=== PATIENT | female | born 1960 | race Caucasian/White ===

== ENCOUNTER → 2020-02-09 09:54 | Outpatient (REF) | payer MEDICARE, SELFPAY | LOC: ANHLAB 09:54 | PROVIDERS: PCP Family Medicine; Visit Provider Nurse Practitioner | DX: C44.321 Squamous cell carcinoma of skin of nose (principal) | CPT/HCPCS: 88305 ==

== ENCOUNTER → 2020-04-11 09:38 | Outpatient (REF) | payer MEDICARE, SELFPAY | LOC: ANHLAB 09:38 | PROVIDERS: PCP Family Medicine; Visit Provider Nurse Practitioner | DX: C44.321 Squamous cell carcinoma of skin of nose (principal) | CPT/HCPCS: 88305; 88331 ==

== ENCOUNTER 2021-07-10 01:01 | Day surgery (SDC) | payer MEDICARE, SELFPAY ==
[2021-06-28 14:11] VITALS: BMI 23.8
[2021-07-10 12:46] VITALS: BP 126/86; PULSE 81; RESP 16; TEMP 36.1; O2SAT 100
[2021-07-10] MEDS: LACTATED RINGERS 1,000 ML 150 ML IV CONT (12:50)
--- NOTE | 2021-07-10 12:55 | PM.HPGS ---
History of Present Illness History of Present Illness Consent: Risks, benefits, and alternatives have been discussed and questions answered. Patient agrees to proceed with procedure. Chief complaint: positive cologuard Narrative: Rosa Jin is a 61 year old female referred for colon cancer screening. She had performed a Cologuard test which was positive. Review of Systems Review of Systems: All systems reviewed & are unremarkable except as noted in HPI and below [facility] Past Medical History Medical History (Updated 07/10/21 @ 12:55 by Derek Cesar MD) BMI 25.0-25.9,adult Elevated blood pressure reading History of breast cancer Hypothyroidism Insomnia, unspecified Kienbock's disease of adults Lesion of skin of nose Neuropathy due to chemotherapeutic drug Other intervertebral disc degeneration, lumbosacral region Positive colorectal cancer screening using Cologuard test Surgical History Surgical History History of breast reconstruction History of hysterectomy History of intestinal surgery History of knee surgery Bilateral - knee replacements History of mastectomy History of neck surgery History of surgery on wrist bilateral wrist History of tubal ligation Family History Family History Mother Hypertension Family history of diabetes mellitus in first degree relative Family history of coronary artery disease Family history of heart disease in male family member before age 55 Father Family history of coronary artery disease Cerebrovascular accident Family history of heart disease in male family member before age 55 Sibling Family history of malignant neoplasm of ovary, Onset Age: 36 Family history of malignant neoplasm of breast in first degree relative, Onset Age: 55 Patient's sister is Other Family history of malignant neoplasm Family history of malignant neoplasm of male breast Family history of throat cancer Malignant neoplasm of prostate Social History Social History Smoking packs per day: 0.5 Smoking cigarettes per day: 10.0 Years smoked: 45 Smoking pack-years: 22.50 Smoking status: Current every day smoker Second hand tobacco smoke exposure: No Smoking end date: 03/11/90 Alcohol intake: current Living arrangements: with family Meds Home Medications and Allergies Home Medications Medication Instructions Recorded Confirmed Type gabapentin 300 mg capsule 600 mg PO TID #180 cap 02/28/21 07/10/21 Rx hydrocodone 7.5 mg-acetaminophen 1 tablet PO Q6H PRN #120 tablet 06/23/21 07/10/21 Rx 325 mg tablet meloxicam 15 mg PO DAILY 07/10/21 07/10/21 History Allergies Allergy/AdvReac Type Severity Reaction Status Date / Time No Known Allergies Allergy Verified 07/10/21 12:45 Vital Signs Vital Signs - 24 hr 07/10/21 12:46 Temperature 36.1 C L Pulse Rate 81 Respiratory Rate 16 Blood Pressure 126/86 Pulse Oximetry 100 Exam Const: General: alert Orientation/consciousness: patient oriented x3 Resp: Auscultation: clear to auscultation bilaterally Cardio: Rhythm: regular rhythm GI: GI Palp: Yes Soft to palpation and No Tenderness to palpation present (GI) Neuro: General: patient oriented x3 Assessment and Plan Assessment and plan (1) Colon cancer screening: Code(s): Z12.11 - Encounter for screening for malignant neoplasm of colon Status: Acute Assessment and Plan: Colonoscopy with possible biopsy or polypectomy or cautery or injection of substances.
--- NOTE | 2021-07-10 13:12 | WPDANESEPPF ---
Anes - Initial Pre Proc Eval Procedure: Operation Date: 07/10/21 13:30 Proposed Procedures p Colonoscopy - Derek Cesar MD Date/Time: 07/10/21 13:12 Surgeon: Derek Cesar MD Pre Op Diagnosis: positive cologuard Patient Data Age: 61 Gender: F Height: 1.68 m Weight: 69.3 kg Last Vital Signs Temp 97 F L 07/10/21 12:46 Pulse 81 07/10/21 12:46 Resp 16 07/10/21 12:46 BP 126/86 07/10/21 12:46 Pulse Ox 100 07/10/21 12:46 Allergies Allergy/AdvReac Type Severity Reaction Status Date / Time No Known Allergies Allergy Verified 07/10/21 12:45 Home Medications Medication Instructions Recorded Confirmed Type gabapentin 300 mg capsule 600 mg PO TID #180 cap 02/28/21 07/10/21 Rx hydrocodone 7.5 mg-acetaminophen 1 tablet PO Q6H PRN #120 tablet 06/23/21 07/10/21 Rx 325 mg tablet meloxicam 15 mg PO DAILY 07/10/21 07/10/21 History Patient hx anesthesia problems: none Family hx anesthesia problems: none Results Review: All pre-operative results and documents have been reviewed as part of the pre-operative evaluation. [facility] Past Medical History Medical History (Updated 07/10/21 @ 12:55 by Derek Cesar MD) BMI 25.0-25.9,adult Elevated blood pressure reading History of breast cancer Hypothyroidism Insomnia, unspecified Kienbock's disease of adults Lesion of skin of nose Neuropathy due to chemotherapeutic drug Other intervertebral disc degeneration, lumbosacral region Positive colorectal cancer screening using Cologuard test Surgical History Surgical History History of breast reconstruction History of hysterectomy History of intestinal surgery History of knee surgery Bilateral - knee replacements History of mastectomy History of neck surgery History of surgery on wrist bilateral wrist History of tubal ligation Family History Family History Mother Hypertension Family history of diabetes mellitus in first degree relative Family history of coronary artery disease Family history of heart disease in male family member before age 55 Father Family history of coronary artery disease Cerebrovascular accident Family history of heart disease in male family member before age 55 Sibling Family history of malignant neoplasm of ovary, Onset Age: 36 Family history of malignant neoplasm of breast in first degree relative, Onset Age: 55 Patient's sister is Other Family history of malignant neoplasm Family history of malignant neoplasm of male breast Family history of throat cancer Malignant neoplasm of prostate Social History Social History Smoking packs per day: 0.5 Smoking cigarettes per day: 10.0 Years smoked: 45 Smoking pack-years: 22.50 Smoking status: Current every day smoker Second hand tobacco smoke exposure: No Smoking end date: 03/11/90 Alcohol intake: current Living arrangements: with family Mari Barnes Final PreProcedure Day of Procedure 07/10/21 13:12 Patient weight: normal Heart: regular rate and rhythm Lungs: clear to auscultation Airway: Mallampati scale class II Neurological: alert and oriented Last oral intake: >/= 8 hours ASA classification: III Emergent: no Anesthetic plan: proceed Anesthesia type and monitoring: general GIVS and standard monitoring Results Review: All pre-operative results and documents have been reviewed as part of the pre-operative evaluation. Informed Consent: The patient's anesthetic plan and its attendant risks and benefits were discussed with the patient/family/POA. Questions were solicited and answers provided to the satisfaction of the patient/family/POA.
[2021-07-10 13:51] VITALS: BP 83/57; PULSE 74; RESP 18; O2SAT 95
[2021-07-10 14:01] VITALS: BP 100/69; PULSE 66; RESP 20; O2SAT 96
[2021-07-10 14:11] VITALS: BP 113/82; PULSE 68; RESP 20; O2SAT 100
== END 2021-07-10 14:23 | disposition home or self-care (01) ==
PROVIDERS: PCP Family Medicine; Visit Provider Internal Medicine Gastroenterology
PROC: 0DJD8ZZ Inspection of Lower Intestinal Tract, Via Natural or Artificial Opening Endoscopic (ICD-10-PCS; CPT 45378; principal; 2021-07-10 13:30)
DX: Z12.11 Encounter for screening for malignant neoplasm of colon (principal); K64.8 Other hemorrhoids; D12.5 Benign neoplasm of sigmoid colon; D12.3 Benign neoplasm of transverse colon; R19.5 Other fecal abnormalities; Z98.0 Intestinal bypass and anastomosis status; Z90.49 Acquired absence of other specified parts of digestive tract; M93.1 Kienbock's disease of adults; E03.9 Hypothyroidism, unspecified; G62.0 Drug-induced polyneuropathy; T45.1X5S Adverse effect of antineoplastic and immunosuppressive drugs, sequela; Z85.3 Personal history of malignant neoplasm of breast; F17.210 Nicotine dependence, cigarettes, uncomplicated
CPT/HCPCS: 45385; 88305; J2704; J7120

== ENCOUNTER 2022-06-28 07:42 | Outpatient (CLI) | payer MEDICARE, SELFPAY ==
--- NOTE | ~2022-06-28 | MR_ITS ---
MRI of the lumbar spine Clinical History: Back pain Technique: Axial T2-weighted images, and sagittal T1-weighted, T2-weighted, and and T2 fat-sat images were acquired. Findings: No fracture identified. Minimal grade 1 anterolisthesis of L4 over L5 present. No suspiciou s bone marrow signal abnormality seen. At L1-L2, there is no significant disc bulge or herniation. There is mild facet joint hypertrophy. No spinal canal stenosis or neural foraminal narrowing. At L2-L3, there is minimal disc bulge and mild facet joint hypertrophy. No spinal canal stenosis or n eural foraminal narrowing. At L3-L4, there is no disc bulge or herniation. There is minimal facet joint hypertrophy. No spinal c anal stenosis or neural foraminal narrowing. At L4-L5, there is minimal disc bulge with advanced facet arthropathy bilaterally. No bryanna spinal ca nal stenosis or neural foraminal narrowing. At L5-S1, there is degenerative disc narrowing with mild disc bulge. There is mild facet arthropathy bilaterally. No spinal canal stenosis. There is moderate right neural foraminal narrowing. Left neura l foramen preserved. Paravertebral soft tissues are unremarkable. Impression: Moderate right neural foraminal narrowing at L5-S1. Additional minimal degenerative changes, as above. Reviewed, dictated and finalized at [facility]. Impression: Moderate right neural foraminal narrowing at L5-S1. Additional minimal degenerative changes, as above.
--- NOTE | ~2022-06-28 | MR_ITS ---
MRI of the cervical spine Clinical History: Pain Technique: Axial T2-weighted and gradient images, and sagittal T1-weighted, T2-weighted, and STIR christ ges were acquired. Findings: There is no fracture or subluxation of the cervical spine. There is fusion across the C5-C6 disc space. No bone marrow signal abnormality seen. At C2-C3, there is no disc bulge or herniation. No spinal canal stenosis, cord compression, or defini te neural foraminal narrowing. There is mild left-sided facet arthropathy. At C3-C4, there is degenerative disc narrowing with diffuse disc bulge. There is minimal canal stenos is without bryanna cord compression. There is probable bilateral mild neural foraminal narrowing with m ild bilateral facet arthropathy, left worse than right. At C4-C5, there is degenerative disc narrowing with disc osteophyte complex. No bryanna spinal canal st enosis or cord compression. There is bilateral neural foraminal narrowing. At C5-C6, there is no disc bulge or herniation. No spinal canal stenosis or cord compression. Bilater al neural foramina are preserved. At C6-C7, there is no disc bulge or herniation. No spinal canal stenosis, cord compression, or defini te neural foraminal narrowing. No abnormal signal seen in the spinal cord. Paravertebral soft tissues are unremarkable. Impression: Mild degenerative spondylosis, most notably at C3-C4 and C4-C5. Please see details above. Prior fusion across the C5-C6 disc space. Reviewed, dictated and finalized at [facility]. Impression: Mild degenerative spondylosis, most notably at C3-C4 and C4-C5. Please see deta ils above. Prior fusion across the C5-C6 disc space.
== END 2022-06-28 07:43 | disposition home or self-care (01) ==
PROVIDERS: PCP Family Medicine; Visit Provider Nurse Practitioner Family
DX: M51.37 Other intervertebral disc degeneration, lumbosacral region (principal); M51.36 Other intervertebral disc degeneration, lumbar region; M50.30 Other cervical disc degeneration, unspecified cervical region; G62.9 Polyneuropathy, unspecified; M47.22 Other spondylosis with radiculopathy, cervical region
CPT/HCPCS: 72141; 72148

== ENCOUNTER 2022-09-09 09:45 | Emergency (ER) | payer MEDICARE, SELFPAY ==
--- NOTE | 2022-09-09 09:46 | ED.EYEPROB ---
HPI - Eye Problem General Chief complaint: Eye Problems Stated complaint: Lt Eye Irritation Time Seen by Provider: 09/09/22 09:46 Source: patient Mode of arrival: ambulatory Limitations: no limitations History of Present Illness HPI Narrative: Rosa is a 62-year-old female patient presenting to clinic today with complaints of left eye pain, light sensitivity, and watering. She reports symptoms began this morning. States she was out working in the [employer] yesterday and thought maybe some got into her eye. She denies any visual changes. Thought this morning that she had a stye in her eye and has been using stye eyedrops from the pharmacy Related Data Allergies Allergy/AdvReac Type Severity Reaction Status Date / Time No Known Allergies Allergy Verified 09/09/22 09:46 Review of Systems Review of Systems: Pertinent positives per HPI. Patient denies any fever, chills, rash, headache, visual changes, dizziness, cough, runny nose, sore throat, shortness of breath, chest pain, palpitations, nausea, vomiting, diarrhea, constipation, abdominal pain, or any urinary issues. [facility] Past Medical History Medical History BMI 25.0-25.9,adult Elevated blood pressure reading History of breast cancer Hypothyroidism Insomnia, unspecified Kienbock's disease of adults Lesion of skin of nose Neuropathy due to chemotherapeutic drug Other intervertebral disc degeneration, lumbosacral region Positive colorectal cancer screening using Cologuard test Surgical History Surgical History History of breast reconstruction History of hysterectomy History of intestinal surgery History of knee surgery Bilateral - knee replacements History of mastectomy History of neck surgery History of surgery on wrist bilateral wrist History of tubal ligation Family History Family History Mother Hypertension Family history of diabetes mellitus in first degree relative Family history of coronary artery disease Family history of heart disease in male family member before age 55 Heart disease Father Family history of coronary artery disease Cerebrovascular accident Family history of heart disease in male family member before age 55 Sibling Family history of malignant neoplasm of ovary, Onset Age: 36 Family history of malignant neoplasm of breast in first degree relative, Onset Age: 55 Patient's sister is Ovarian cancer Breast cancer Pancreatic cancer Diabetes mellitus Epilepsy Other Family history of malignant neoplasm Family history of malignant neoplasm of male breast Family history of throat cancer Malignant neoplasm of prostate Social History Social History Smoking packs per day: 0.5 Smoking cigarettes per day: 10.0 Years smoked: 45 Smoking pack-years: 22.50 Smoking status: Current every day smoker Tobacco type: cigarettes Second hand tobacco smoke exposure: No Alcohol intake: current Substance use: never Substance use type: does not use Lack of Transportation: No Lack of Food: Never True Current Housing: I Have Housing Concerned About Future Housing: No Difficulty Paying Gas/Electric Bills: No Difficulty Paying for Meds: No Currently Unemployed: No Education: Trade/Vocational Certificate Living arrangements: alone Occupation/Education: unemployed Gender identity (if verbalized by the patient): Female Comments At the time of my signature, I reviewed and agree with the nursing past medical, surgical, social, and family history. There is no relevant family history pertinent to the patient complaint. Exam Narrative: General: Well-developed, well nourished, in no apparent distress Head: Normocephalic, atraumat
[2022-09-09 09:50] VITALS: BP 133/108; PULSE 73; RESP 18; TEMP 36.5; O2SAT 97
== END 2022-09-09 10:23 | disposition home or self-care (01) ==
PROVIDERS: Emergency Provider Nurse Practitioner Family; PCP Family Medicine
DX: S05.02XA Injury of conjunctiva and corneal abrasion without foreign body, left eye, initial encounter (principal); X58.XXXA Exposure to other specified factors, initial encounter; Z85.3 Personal history of malignant neoplasm of breast; E03.9 Hypothyroidism, unspecified; M93.1 Kienbock's disease of adults; G62.9 Polyneuropathy, unspecified; M51.37 Other intervertebral disc degeneration, lumbosacral region; Z96.653 Presence of artificial knee joint, bilateral
CPT/HCPCS: 99213; A9270; G0463

== ENCOUNTER 2022-10-25 11:15 | Outpatient (CLI) | payer MEDICARE, SELFPAY ==
--- NOTE | ~2022-10-25 | XR_ITS ---
EXAMINATION: XR knee RT 3V DATE: 10/25/2022 11:40 INDICATION: Right knee pain. TECHNIQUE: 3 views of right knee were obtained. COMPARISON: None. FINDINGS: Bone alignment is normal. No fracture. There is mild tricompartmental osteoarthritis charac terized by marginal osteophytes. No joint space narrowing. There is a small knee joint effusion. IMPRESSION: 1. Mild right knee osteoarthritis. 2. Small right knee joint effusion. Reviewed, dictated and finalized at location A.
== END 2022-10-25 11:16 | disposition home or self-care (01) ==
LOC: ANHIMG 11:21
PROVIDERS: PCP Family Medicine; Visit Provider Nurse Practitioner Family
DX: M17.11 Unilateral primary osteoarthritis, right knee (principal); M25.461 Effusion, right knee
CPT/HCPCS: 73562

== ENCOUNTER 2022-11-06 10:44 | Outpatient (CLI) | payer MEDICARE, SELFPAY ==
--- NOTE | ~2022-11-06 | XR_ITS ---
XR ribs BI 3V w CXR 2V DATE: 11/06/2022 11:21 INDICATION: Thorax injury. Chest pain. TECHNIQUE: PA and lateral chest. Multiple views of right ribs and multiple views of left ribs COMPARISON: 02/26/2018 PA and lateral chest FINDINGS: Bilateral old pulmonary granulomatous disease is again noted. Chronic discoid scarring, med ial left lower lobe. No pulmonary infiltrate or consolidation, pleural effusion or pulmonary vascular congestion or pneumothorax is detected. Normal heart size. Is aortic calcification and unfolding. No hilar or mediastinal enlargement. Osteopenia. Degenerative spurring and mild levoscoliosis of the thoracic spine. IMPRESSION: Chronic discoid atelectasis or scarring, medial left lower lobe Old pulmonary granulomatous disease No active cardiopulmonary disease Aortic atherosclerosis Osteopenia Reviewed, dictated and finalized at location L.
== END 2022-11-06 10:45 | disposition home or self-care (01) ==
LOC: ANHIMG 10:47
PROVIDERS: PCP Family Medicine; Visit Provider Nurse Practitioner Family
DX: S29.9XXA Unspecified injury of thorax, initial encounter (principal); X58.XXXA Exposure to other specified factors, initial encounter; I70.0 Atherosclerosis of aorta; M85.88 Other specified disorders of bone density and structure, other site
CPT/HCPCS: 71046; 71110

== ENCOUNTER 2024-01-06 08:14 | Outpatient (CLI) | payer MEDICARE, SELFPAY ==
--- NOTE | ~2024-01-06 | XR_ITS ---
EXAMINATION: XR knee LT min 4V DATE: 01/06/2024 08:35 INDICATION: Left knee pain. TECHNIQUE: 4 views of left knee including standing views were obtained. COMPARISON: Left knee radiographs 01/30/2017 FINDINGS: There is a total left knee arthroplasty revision with patellar resurfacing in near-anatomic alignment. No fracture. No periprosthetic lucency to suggest loosening or infection. No knee joint e ffusion. IMPRESSION: 1. Total left knee arthroplasty in near-anatomic alignment. Reviewed, dictated and finalized at location []
== END 2024-01-06 08:15 | disposition home or self-care (01) ==
PROVIDERS: PCP Family Medicine; Visit Provider Nurse Practitioner Family
DX: G89.29 Other chronic pain (principal); M51.360 Other intervertebral disc degeneration, lumbar region with discogenic back pain only; M48.061 Spinal stenosis, lumbar region without neurogenic claudication; M25.562 Pain in left knee
CPT/HCPCS: 73564

== ENCOUNTER 2024-05-02 13:17 | Emergency (ER) | payer MEDICARE, SELFPAY ==
--- OUTSIDE RECORDS SUMMARY | 2024-05-02 13:20 | XMS_ITS | Encounter Summary ---
Author Organization [facility] Address [address] [place] [address] Care Team Providers Care Operator Maintainer Name Role Phone Yakov Cannon MD Primary Care Provider [phone] Encounter Details Date Type Department Care Team (Late st Contact Info) Description 08/21/2016 [facility] Outpatient Visit [facility] Orthopedics [address] [place] [address] Eugenio Castro F, DO [address] [place] [id number] Social History Tobacco Use Types Packs/Day Years Used Date Smoking Tobacco: Every Day Sex and Gender Information Value Date Recorded Sex Assigned at Not on file Gender Identity Not on file Sexual Orientation Not on file documented as of this encounter Plan of Treatment Not on file documented as of this encounter Visit Diagnoses Not on filedocumented in this encounter Care Teams Operator Maintainer Relationship Specialty Start Date End Date Yakov Cannon MD [address] [place] [address] PCP - General Family Medicine 07/05/16 documented as of this encounter
--- OUTSIDE RECORDS SUMMARY | 2024-05-02 13:20 | XMS_ITS | Referral Summary ---
Author Organization [facility] Address [address] [place] [address] Care Team Providers Care Moto Mix Operator Name Role Phone Yakov Cannon MD Primary Care Provider [phone] Source Comments [facility],non-owned Affiliates and Associated Physician Practices is amultiple site organization consisting of ambulatory clinics and hospital sitesin [place], [place], [place] and [place]. This disclosure is being madepursuant to the Care Everywhere program and may not contain all information available regarding this patient. Last updated 17.[facility] Allergies No known active allergies Medications * Be aware that medications may not be up to date on this document. Alwaysverify current medications with the patient. Medication Sig Dispensed Refills Start Date End Date Status pregabalin (LYRICA) 150 MG capsule Take 150 mg by mouth 3 times daily Active HYDROcodone-acetamin ophen (NORCO) 7.5-325 MG tablet Take 1 Tab by mouth every 6 hours Active naproxen (NAPROSYN) 500 MG tablet Take 500 mg by mouth A ctive methylPREDNISolone (MEDROL DOSEPAK) 4 MG tabletIndications:Pa in Take 1 Tab by mouth as directed Medrol Dosepak #1, take as directed. Reasons: Pain 21 Tab 07/05/2016 Active Additional Information Patient not taking.Reported on 09/04/2016 Active Problems No known active problems Social History Tobacco Use Types Packs/Day Years Used Date Smoking Tobacco: Every Day Tobacco Cessation:Ready to Q uit: No Sex and Gender Information Value Date Recorded Sex Assigned at Not on file Gender Identity Not on file Sexual Orientation Not on file Last Filed Vital Signs Vital Sign Reading Time Taken Comments Blood Pressure 141/106 07/31/2016 9:11 AM CDT Pulse - - Temperature 36.8 C (98.3 F) 09/29/2013 9:25 AM CDT Respiratory Rate - - Oxygen Saturation - - Inhaled Oxygen Concentration - - Weight 62.1 kg (137 lb) 07/31/2016 9:11 AM CDT Height 165.1 cm (5' 5 ) 07/31/2016 9:11 AM CDT Body Mass Index 22.8 07/31/2016 9:11 AM CDT Plan of Treatment Not on file Care Teams Moto Mix Operator Relationship Specialty Start Date End Date Yakov Cannon MD [address] [place] [address] PCP - General Family Medicine 07/05/16
--- OUTSIDE RECORDS SUMMARY | 2024-05-02 13:20 | XMS_ITS | Clinical Summary ---
Author Organization [facility] Address [facility] [place] [address] Care Team Providers Care Marker Hand Name Role Phone Unavailable Primary Care Provider Unavailabl e Social History Tobacco Use Types Packs/Day Years Used Date Smoking Tobacco: Never Assessed Comments Unknown Sex and Gender Information Value Date Recorded Sex Assigned at Not on file Legal Sex Female 8:15 PM CDT Gender Identity Not on file Sexual Orientation Not on file Last Filed Vital Signs Vital Sign Reading Time Taken Comments Blood Pressure 120/76 02/10/2016 9:50 AM OPTICS TECHNICAL OFFICER Pulse 72 02/10/2016 9:50 AM OPTICS TECHNICAL OFFICER Temperature - - Respiratory Rate - - Oxygen Saturation - - Inhaled Oxygen Concentration - - Weight 70.4 kg (155 lb 4 oz) 02/10/2016 9:50 AM OPTICS TECHNICAL OFFICER Height 167.6 cm (5' 6 ) 02/10/2016 9:50 AM OPTICS TECHNICAL OFFICER Body Mass Index 25.06 02/10/2016 9:50 AM OPTICS TECHNICAL OFFICER Plan of Treatment Health Maintenance Due Date Last Done Comments Cervical Cancer Screening Pa p Smear (Age 30 to 64) Every 3 Years 1960 Colorectal Cancer Screening Colonoscopy (10 Years) 1960 Annual Physical 05/23/1963 Hepatitis C 1978 DTaP, Tdap and Td Vaccines ( 1 - Tdap) 05/23/1979 Cervical Cancer Screening Pa p with HPV Testing (Age 30 to 64) Every 5 Years 1990 Cervical Cancer Screening with HPV 1990 Mammogram Screening 2000 Zoster Vaccines (1 of 2) 2010 COVID-19 Vaccine ( - 2023-2 5 season) 2023 Influenza Adult (#1) 2023 RSV Immunization or 60+ Years (1 - 1-dose 75+ series) 05/23/2035 Meningococcal B Vaccine Aged Out No l onger eligible based on patient's age to complete this topic Meningococcal Vaccine Aged Out No tex chandana eligible based on patient's age to complete this topic Pneumococcal Vaccine: Pediat rics (0 to 5 Years) and At-Risk Patients (6 to 64 Years) Aged Out No longer eligible b ased on patient's age to complete this topic RSV Immunizations Under 20 Months Aged Out No longer eligible based on patient's age to complete this topic
--- OUTSIDE RECORDS SUMMARY | 2024-05-02 13:20 | XMS_ITS | Encounter Summary ---
Author Organization [facility] Address [address] [place] [address] Care Team Providers Care Resin Filterer Name Role Phone Yakov Cannon MD Primary Care Provider [phone] Encounter Details Date Type Department Care Team (Late st Contact Info) Description 07/12/2016 [facility] Outpatient Visit [facility] Orthopedics [address] [place] [address] Eugenio Castro F, DO [address] [place] [id number] Social History Tobacco Use Types Packs/Day Years Used Date Smoking Tobacco: Never Assessed Sex and Gender Information Value Date Recorded Sex Assigned at Not on file Gender Identity Not on file Sexual Orientation Not on file documented as of this encounter Plan of Treatment Not on file documented as of this encounter Visit Diagnoses Not on filedocumented in this encounter Care Teams Resin Filterer Relationship Specialty Start Date End Date Yakov Cannon MD [address] [place] [address] PCP - General Family Medicine 07/05/16 documented as of this encounter
--- OUTSIDE RECORDS SUMMARY | 2024-05-02 13:20 | XMS_ITS | Patient Health Summary ---
Author Organization [facility] [employer] Address [address] [place] [address] Care Team Providers Care Ship Captain Name Role Phone Yakov Cannon MD Primary Care Provider [phone] Note from [facility],non-owned Affiliates and Associated Physician Practices is amultiple site organization consisting of ambulatory clinics and hospital sitesin [place], [place], [place] and [place]. This disclosure is being madepursuant to the Care Everywhere program and may not contain all information available regarding this patient. Last updated 17.[facility] Allergies No known active allergies Medications * Be aware that medications may not be up to date on this document. Alwaysverify current medications with the patient. * pregabalin (LYRICA) 150 MG capsule Take 150 mg by mouth 3 times daily * HYDROcodone-acetaminophen (NORCO) 7.5-325 MG tablet Take 1 Tab by mouth every 6 hours * naproxen (NAPROSYN) 500 MG tablet Take 500 mg by mouth * methylPREDNISolone (MEDROL DOSEPAK) 4 MG tablet(Started 07/05/2016) Take 1 Tab by mouth as directed Medrol Dosepak #1, take as directed. Reasons: Pain Active Problems No known active problems Social [...] Mass Index 22.8 07/31/2016 9:11 AM CDT Procedures * CREATININE BLOOD - POCT (IP) [facility](Performed 01/11/2014) * XR CERVICAL SPINE 4 OR 5VW(Performed 09/29/2013) * XR LUMBAR SPINE 2 OR 3VW(Performed 09/29/2013) Results * CREATININE BLOOD - POCT (IP) [facility] (01/11/2014) Creatinine POCT 0.55 0.3 - 1.3 mg/dL [facility] eGFR POCT 60 60 ml/min [facility] 01/11/2014 Makenzie Ayers MD LAB - POINT OF CA RE ORDERABLES [facility] * XR CERVICAL SPINE 4 OR 5VW (09/29/2013 10:15 AM CDT) Anatomical Region Laterality Modality Spine Other Impressions 09/29/2013 11:07 AM CDT Impression: 1. Osseous fusion across the C5-C6 disc space. 2. Degenerative disc disease at C4-5 and C6-7. 3. No subluxation upon flexion or extension. This report was electronically signed by RUSLAN HOWARD MD on 09/29/2013 11:07 AM . Narrative 09/29/2013 11:07 AM CDT Exam: XR SPINE CERVICAL 4 VW MIN Comparison: None available. History: neck and bilateral hand ain Findings: There is osseous fusion across the C5-C6 disc space. There is severe narrowing at the C6-C7 disc space and mild narrowing at C4-C5 with osteophytes at these levels. The bones are mildly osteopenic. No fracture or subluxation is seen. Lateral flexion and extension views demonstrate no significant subluxation with flexion or extension. Procedure Note Ruslan Howard MD - 06/08/2017 Exam: XR SPINE CERVICAL 4 VW MIN Comparison: None available. History: neck and bilateral hand ain Findings: There is osseous fusion across the C5-C6 disc space. There is severenarrowing at the C6-C7 disc space and mild narrowing at C4-C5 withosteophytes at these levels. The bones are mildly osteopenic. No fractureor subluxation is seen. Lateral flexion and extension views demonstrate no significant subluxation with flexion orextension. IMPRESSION Impression: 1. Osseous fusion across the C5-C6 disc space. 2. Degenerative disc disease at C4-5 and C6-7. 3. No subluxation upon flexion or extension. This report was electronically signed by RUSLAN HOWARD MD on 09/29/201311:07 AM . Vincenzo Arrieta MD DIAGNOSTIC IMAGING O RDERABLES * XR LUMBAR SPINE 2 OR 3VW (09/29/2013 9:24 AM CDT) Anatomical Region Laterality Modality Spine Other Impressions 09/29/2013 10:27 AM CDT Impression: 1. Mild thoracolumbar dextroscoliosis. 2. Mild degenerative disc and joint disease at L3-4, L4-5 and L5-S1. Report dictated by Milton Cutler DO (vice president consulting services). This report was approved by Milton Cutler D.O. on 09/29/2013 10:03 AM . IDr. RUSLAN MD have personally reviewed and interpreted this examination/study. This report was electronically signed by RUSLAN HOWARD MD on 09/29/2013 10:27 AM . Narrative 09/29/2013 10:27 AM CDT Examination: XR SPINE LUMBAR 2 OR 3 VW Date: 09/29/2013 9:24 AM History: Low back pain Findings: No prior study is available for comparison. There is mild thoracolumbar dextroscoliosis. Apparent mild anterolisthesis at L4-5 may be related to patient's dextroscoliosis. No other subluxation in the lumbar spine is identified. The vertebral body heights are normal without evidence of acute fracture. There is mild intervertebral disc space narrowing at L3-4, L4-5 and L5-S1. The remaining intervertebral disc spaces are preserved. There is mild multilevel anterior osteophytosis. There is facet arthritis at L3-4, L4-5 and L5-S1 The bilateral sacroiliac joints appear intact. There is atherosclerotic calcification of the abdominal aorta. Procedure Note Ruslan Howard MD - 06/08/2017 Examination: XR SPINE LUMBAR 2 OR 3 VW Date: 09/29/2013 9:24 AM History: Low back pain Findings: No prior study is available for comparison. There is mild thoracolumbar dextroscoliosis. Apparent mild anterolisthesisat L4- 5 may be related to patient's dextroscoliosis. No other subluxationin the lumbar spine is identified. The vertebral body heights are normalwithout evidence of acute fracture. There is mild intervertebral disc space narrowing at L3-4, L4-5and L5- S1. The remaining intervertebral disc spaces are preserved. Thereis mild multilevel anterior osteophytosis. There is facet arthritis atL3-4, L4-5 and L5-S1 The bilateral sacroiliac joints appear intact. There is atherosclerotic calcification ofthe abdominal aorta. IMPRESSION Impression: 1. Mild thoracolumbar dextroscoliosis. 2. Mild degenerative disc and joint disease at L3-4, L4-5 and L5-S1. Report dictated by Milton Cutler DO (vice president consulting services). This report was approved by Sanam MckeonOMahendra on 09/29/2013 10:03 AM. IDr. RUSLAN MD have personally reviewed and interpreted thisexamination/study. This report was electronically signed by RUSLAN HOWARD MD on 09/29/201310:27 AM . Vincenzo Arrieta MD DIAGNOSTIC IMAGING O RDERABLES Care Teams Ship Captain Relationship Specialty Start Date End Date Yakov Cannon MD [address] [place] [address] PCP - General Family Medicine 07/05/16
--- OUTSIDE RECORDS SUMMARY | 2024-05-02 13:20 | XMS_ITS | Clinical Summary ---
Author Organization [facility] Address [address] [place] [address] Care Team Providers Care Director Sales Support Name Role Phone Yakov Cannon MD Primary Care Provider [phone] Allergies No known active allergies Medications HYDROcodone-miki taminophen (NORCO) 7.5-325 mg Tablet Take 1 Tablet by mouth every 6 hours as needed for Pain, Moderate. Active meloxicam (MOBIC) 7.5 mg tablet Take 7.5 mg by mouth daily. 01/01/2024 Active gabapentin (NEURONTIN) 300 mg capsule Take 2 Capsules by mouth 3 times daily. 01/20/2024 Active Active Problems Problem Noted Date Diagnosed Date Malignant neoplasm of upper- outer quadrant of left female breast 03/21/2016 Tobacco use 03/21/2016 Encounters Date Type Department Care Team Description 04/29/2024 External Device Data [facility] ABSTRACTION Provider, Abstract 04/29/2024 External Device Data [facility]CTION Provider, Abstract 04/14/2024 External Device Data [facility]CTION Provider, Abstract 04/07/2024 External Device Data [facility] Provider, Abstract 04/01/2024 External Device Data [facility] Provider, Abstract 04/01/2024 External Device Data [facility]STRACTION Provider, Abstract 03/24/2024 External Device Data [facility]STRACTION Provider, Abstract 03/13/2024 2:15 PM RACEBOOK WRITER Office Visit [facility] at the [facility] Medicine [address] [place] [address] Alfie Bean MD 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, initial encounter (Primary Dx) 02/18/2024 External Device Data [facility] ABSTRACTION Provider, Abstract 02/13/2024 1:26 PM RACEBOOK WRITER - 02/13/2024 11:59 PM RACEBOOK WRITER Hospital Encounter [facility] [address] [place] [address] Alfie Bean MD Discharge Disposition: Home or Self Care 02/13/2024 10:56 AM RACEBOOK WRITER - 02/13/2024 11:59 PM RACEBOOK WRITER Hospital Encounter [facility] [address] [place] [address] Alfie Bean MD Discharge Disposition: Home or Self Care 02/11/2024 9:55 AM RACEBOOK WRITER Ancillary Procedure [facility] Surgery at the [address] [place] [address] Alfie Bean MD 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, initial encounter 02/11/2024 9:30 AM RACEBOOK WRITER Office Visit [facility] at the [address] [place] [address] Alfie Bean MD 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, initial encounter (Primary Dx) from Last 3 Months Family History Medical History Relation Name Comments Heart Disease Father Diabetes Mother Heart Disease Mother Cancer Sister Relation Name Status Comments Father Mother Sister Social History Tobacco Use Types Packs/Day Years Used Date Smoking Tobacco: Every Day Cigarettes Alcohol Use Standard Drinks/Week Comments Yes 1 (1 standard drink = 0.6 oz pur e alcohol) daily Comments No Sex and Gender Information Value Date Recorded Sex Assigned at Not on file Legal Sex Female 9:56 AM RACEBOOK WRITER Gender Identity Not on file Sexual Orientation Not on file Last Filed Vital Signs Vital Sign Reading Time Taken Comments Blood Pressure 132/86 03/21/2016 10:08 AM RACEBOOK WRITER Pulse 88 03/21/2016 10:08 AM RACEBOOK WRITER Temperature 36.8 C (98.3 F) 03/21/2016 10:08 AM RACEBOOK WRITER Respiratory Rate 20 03/21/2016 10:08 AM RACEBOOK WRITER Oxygen Saturation - - Inhaled Oxygen Concentration - - Weight 69.9 kg (154 lb) 03/13/2024 2:01 PM RACEBOOK WRITER Height 165.1 cm (5' 5 ) 03/13/2024 2:01 PM RACEBOOK WRITER Body Mass Index 25.63 03/13/2024 2:01 PM RACEBOOK WRITER Plan of Treatment Health Maintenance Due Date Last Done Comments Pre-Diabetes and Diabetes Screening 1960 PNEUMOCOCCAL VACCINE 0-64 YEARS (1 of 2 - PCV) 967 DTAP/TDAP/TD VACCINES (1 - Tdap) 05/23/1979 CERVICAL CANCER SCREENING 1990 BREAST CANCER SCREENING 2000 COLORECTAL SCREENING 2005 Colorectal Cancer Screening 2005 FIT-DNA Q 3 years 2005 FIT/FOBT Q 1 year 2005 Flex Sig/CT Colonography Q 5 years 2005 ZOSTER VACCINE (1 of 2) 2010 INFLUENZA VACCINE (#1) 2023 RSV VACCINE (60+ or ) (1 - 1-dose 75+ series) 05/23/2035 Procedures Procedure Name Priority Date/Time Associated Diagnosis Comments NM BONE SCAN 3 PHASE Routine 02/13/2024 1:55 PM RACEBOOK WRITER 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, initial encounter VITAMIN D 25 HYDROXY Routine 02/13/2024 10:29 AM RACEBOOK WRITER 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, initial encounter SEDIMENTATION RATE Routine 02/13/2024 10 :29 AM RACEBOOK WRITER 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, initial encounter C-REACTIVE PROTEIN Routine 02/13/2024 10 :29 AM RACEBOOK WRITER 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, initial encounter XR KNEE 4+ VW LEFT Routine 02/11/2024 10 :02 AM RACEBOOK WRITER 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, initial encounter from Last 3 Months Results * NM BONE SCAN 3 PHASE (02/13/2024 1:55 PM RACEBOOK WRITER) Anatomical Region Laterality Modality Nuclear Medicine 02/13/2024 1:55 PM RACEBOOK WRITER Impressions 02/13/2024 2:02 PM RACEBOOK WRITER IMPRESSION: Three phase positivity at the tip of the tibial stem, which is concerning for active inflammation. The distribution would favor loosening, though infection cannot be excluded entirely. DICTATION LOCATION: Location 1 - [facility] 02/13/2024 2:02 PM RACEBOOK WRITER THREE-PHASE BONE SCAN DATE: 02/13/2024 1:55 PM HISTORY: Left knee replacement, left knee pain. Initial placement in 2016, revision in 2019. COMPARISON: Left knee radiographs 02/11/2024. PROCEDURE: Radionuclide angiography, immediate blood pool and 3 hours delayed imaging. Radiopharmaceutical: 28.8 mCi 99 M technetium MDP ROUTE OF INJECTION: Right hand IV IMAGE QUALITY: Satisfactory. FINDINGS: Angiographic phase: Asymmetrically increased blood flow to the left knee, around the femoral prosthetic component and near the tip of the tibial stem. Blood pool phase: Similar distribution of soft tissue accumulation of tracer. Delayed/bone phase: Most intense tracer uptake is seen at the tip of the tibial stem. Mild to moderate periprosthetic uptake surrounding the tibial plateau and the femoral condyle components is probably within normal physiologic limits. There is also right medial uptake which is most pronounced in the medial compartment, on the basis of degenerative change. Procedure Note Job So MD - 02/13/2024 THREE-PHASE BONE SCAN DATE: 02/13/2024 1:55 PM HISTORY: Left knee replacement, left knee pain. Initial placement in 2017, revision in 2019. COMPARISON: Left knee radiographs 02/11/2024. PROCEDURE: Radionuclide angiography, immediate blood pool and 3 hours delayed imaging. Radiopharmaceutical: 28.8 mCi 99 M technetium MDP ROUTE OF INJECTION: Right hand IV IMAGE QUALITY: Satisfactory. FINDINGS: Angiographic phase: Asymmetrically increased blood flow to the left knee, around the femoral prosthetic component and near the tip of the tibial stem. Blood pool phase: Similar distribution of soft tissue accumulation of tracer. Delayed/bone phase: Most intense tracer uptake is seen at the tip of the tibial stem. Mild to moderate periprosthetic uptake surrounding the tibial plateau and the femoral condyle components is probably within normal physiologic limits. There is also right medial uptake which is most pronounced in the medial compartment, on the basis of degenerative change. IMPRESSION: Three phase positivity at the tip of the tibial stem, which is concerning for active inflammation. The distribution would favor loosening, though infection cannot be excluded entirely. DICTATION LOCATION: Location 1 - [facility] Alfie Bean MD NM ORDERABLES Final Result * VITAMIN D 25 HYDROXY (02/13/2024 10:29 AM RACEBOOK WRITER) VITAMIN D, 25 OH, TOTAL 30 30 - 100 ng/mL [facility] Comment: Vitamin D Status 25-OH Vitamin D: Deficiency: <20 ng/mL Insufficiency: 20 - 29 ng/mL Optimal: > or = 30 ng/mL For 25-OH Vitamin D testing on patients on D2-supplementation and patients for whom quantitation of D2 and D3 fractions is required, the QuestAssureD(TM) 25-OH VIT D, (D2,D3), LC/MS/MS is recommended: order code 96751 (patients >2yrs). See Note 1 Note 1 For additional information, please refer to http://education.[employer]/faq/WSJ679 (This link is being provided for informational/ educational purposes only.) Test Performed at: [facility] [address] [place] [address] DeepaliFalguni Blackwell MD Blood 02/13/2024 10:2 9 AM RACEBOOK WRITER 02/13/2024 10:30 AM RACEBOOK WRITER Alfie Bean MD CHEMISTRY ORDERABLES Final Res ult [facility] [phone] [facility] [address] [place] [address] * SEDIMENTATION RATE (02/13/2024 10:29 AM RACEBOOK WRITER) ESR (SEDIMENTATION RATE) 8 < OR = 30 mm/h [facility] Comment: Test Performed at: [facility] [address] [address] Ken Blackwell Blood 02/13/2024 10:2 9 AM RACEBOOK WRITER 02/13/2024 10:30 AM RACEBOOK WRITER Alfie Bean MD HEMATOLOGY ORDERABLES Final Re sult [facility] [phone] [facility] [address] [place] [address] * C-REACTIVE PROTEIN (02/13/2024 10:29 AM RACEBOOK WRITER) CRP <3.0 <8.0 mg/L [facility] Comment: Test Performed at: [facility] [address] [place] [address] Ken Blackwell MD Blood 02/13/2024 10:2 9 AM RACEBOOK WRITER 02/13/2024 10:30 AM RACEBOOK WRITER Alfie Bean MD CHEMISTRY ORDERABLES Final Res ult Performing Organization Address City/[facility]/ZIP Co de Phone Number [facility] [phone] [facility] [address] [place] [address] * XR KNEE 4+ VW LEFT (02/11/2024 10:02 AM RACEBOOK WRITER) Anatomical Region Laterality Modality Lower Extremity Computed Radiogr aphy Narrative 02/12/2024 6:38 AM RACEBOOK WRITER Standing AP, 45 degree flexed PA, lateral, and sunrise view reveal a revision total knee arthroplasty in appropriate position. Alfie Bean MD DIAGNOSTIC IMAGING ORDERABLES Final Result from Last 3 Months Insurance [employer] [facility] Care Teams Director Sales Support Relationship Specialty Start Date End Date Yakov Cannon MD [address] [place] [address] PCP - General Family Practice 03/21/16
--- OUTSIDE RECORDS SUMMARY | 2024-05-02 13:20 | XMS_ITS | Clinical Summary ---
Author Organization [facility] Address [address] [place] [address] Care Team Providers Care Sand Mixer Name Role Phone Yakov Cannon MD Primary Care Provider [phone] Source Comments [facility],non-owned Affiliates and Associated Physician Practices is amultiple site organization consisting of ambulatory clinics and hospital sitesin [place], [place], [place] and [place]. This disclosure is being madepursuant to the Care Everywhere program and may not contain all information available regarding this patient. Last updated 17.[facility] Allergies No known active allergies Medications * [...] 07/31/2016 9:11 AM CDT Plan of Treatment Health Maintenance Due Date Last Done Comments COLOGUARD (AGES 45-75) - COL ON CA SCREENING 1960 COLON MONITORING 1960 COLONOSCOPY - COLON CA SCREENING 1960 CT COLONOGRAPHY - COLON CA SCREENING 1960 Colorectal Cancer Screening 1960 FIT - COLON CA SCREENING 1960 FLEX SIG - COLON CA SCREENING 1960 LIPID TESTING 1960 MAMMOGRAM 1960 PAP SMEAR 1960 HIV SCREENING 05/23/1975 HEPATITIS C SCREENING 05/18/1978 DTAP/TDAP/TD VACCINES (1 - Tdap) 05/23/1979 PNEUMOCOCCAL VACCINE 50+ (1 of 2 - PCV) 05/23/1979 PNEUMOCOCCAL VACCINE (1 of 2 - PCV) 05/23/1979 ZOSTER VACCINE (1 of 2) 2010 COVID-19 VACCINE ( - 2023-2 5 season) 2023 INFLUENZA VACCINE (#1) 2023 DEPRESSION SCREENING 03/11/2024 MEDICARE AWV CALENDAR YEAR 2024 Respiratory Syncytial Virus (RSV) Vaccine Pt: or over 60 yrs (1 - 1-dose 75+ series) 05/23/2035 HEPATITIS B VACCINE Aged Out No longe r eligible based on patient's age to complete this topic HIB VACCINE Aged Out No longer eligi ble based on patient's age to complete this topic HPV VACCINE Aged Out No longer eligi ble based on patient's age to complete this topic MENINGOCOCCAL (Group B) VACCINE Aged Out No longer eligible based on patient's age to complete this topic MENINGOCOCCAL VACCINE Aged Out No tex chandana eligible based on patient's age to complete this topic Care Teams Sand Mixer Relationship Specialty Start Date End Date Yakov Cannon MD [address] [place] [address] PCP - General Family Medicine 07/05/16
[2024-05-02 13:28] VITALS: BP 146/91; PULSE 69; RESP 16; TEMP 35.9; O2SAT 97
--- NOTE | 2024-05-02 13:29 | ED.WOUNDLAC ---
HPI - Wound/Laceration General Chief Complaint: Wound/Laceration Stated Complaint: finger injury Time Seen by Provider: 05/02/24 13:30 Source: patient Mode of arrival: ambulatory Limitations: no limitations History of Present Illness HPI narrative: 63-year-old female presented for complaint of laceration left index finger sustained just prior to arrival. She states she cut the finger tip on a recently sharpened knife. She states she rinsed finger with tap water and then applied super glue to wound but says it continued to bleed. Related Data Allergies Allergy/AdvReac Type Severity Reaction Status Date / Time No Known Allergies Allergy Verified 01/03/24 07:49 Review of Systems Review of Systems: CONSTITUTIONAL: Denies body aches, fever, chills, or sweats. EYES: Denies visual changes, redness, or discharge. ENT: Denies rhinorrhea, congestion CARDIOVASCULAR: Denies chest pain, palpitations, or edema. RESPIRATORY: Denies cough or dyspnea. GASTROINTESTINAL: Denies abdominal pain, nausea, vomiting, or diarrhea. SKIN: reports finger lac MUSCULOSKELETAL: Denies back pain, joint pain, or myalgia. NEUROLOGIC: Denies numbness, tingling, or weakness. 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 Other intervertebral disc degeneration, lumbosacral region Surgical History Surgical History History of hysterectomy History of breast reconstruction History of mastectomy History of tubal ligation History of neck surgery History of intestinal surgery History of surgery on wrist bilateral wrist History of knee surgery Bilateral - knee replacements Family History Family History Mother Hypertension Family history of diabetes mellitus in first degree relative Family history of coronary artery disease Family history of heart disease in male family member before age 55 Heart disease Father Family history of coronary artery disease Cerebrovascular accident Family history of heart disease in male family member before age 55 Sibling Family history of malignant neoplasm of ovary, Onset Age: 36 Family history of malignant neoplasm of breast in first degree relative, Onset Age: 55 Patient's sister is Ovarian cancer Breast cancer Pancreatic cancer Diabetes mellitus Epilepsy Other Family history of malignant neoplasm Family history of malignant neoplasm of male breast Family history of throat cancer Malignant neoplasm of prostate Social History Social History Smoking packs per day: 0.5 Smoking cigarettes per day: 10.0 Years smoked: 45 Smoking pack-years: 22.50 Smoking status: Current every day smoker Tobacco type: cigarettes Second hand tobacco smoke exposure: No Alcohol intake: current Substance use: never Substance use type: does not use Lack of Transportation: No Lack of Food: Never True Current Housing: I Have Housing Concerned About Future Housing: No Difficulty Paying Gas/Electric Bills: No Difficulty Paying for Meds: No Currently Unemployed: No Education: Trade/Vocational Certificate Living arrangements: alone Occupation/Education: unemployed Gender identity (if verbalized by the patient): Female Comments At time of signature, I have reviewed and agree with nursing past medical, surgical, social and family history unless otherwise noted. Please see nursing chart for further information. There is no relevant family history pertinent to the presenting complaint Exam Narrative: GENERAL: Well-appearing HEAD: Normocephalic, atraumatic. EYES: conjunctivae clear, and EOMI. ENT: Mucous membranes moist. NECK: Supple. No lymphadenopathy CHEST: Clear to auscultation. HEART: Regular rate and rhythm. SKIN: Warm, dry. Left 2nd digit distal phalanx laceration approx 1 cm linear. No nail involvement, No active bleeding. Wound is noted to have dried clear material c/w her report of using super glue. CMS intact. NEURO: Alert and oriented x3. Course Course Emergency Course: Patient is aware of diagnosis, understands and agrees to treatment plan. Anticipatory guidance given. Patient agrees to follow-up as directed and is aware of reasons to seek care at the emergency department. Portions of this record may have been created with voice recognition software Level of Care: Express Care Visit Vital Signs Vital signs: Vital Signs Temperature 96.6 F L 05/02/24 13:28 Pulse Rate 69 05/02/24 13:28 Respiratory Rate 16 05/02/24 13:28 Blood Pressure 146/91 H 05/02/24 13:28 Pulse Oximetry 97 05/02/24 13:28 Oxygen Delivery Room Air 05/02/24 13:28 Temperature 96.6 F L 05/02/24 13:28 Pulse Rate 69 05/02/24 13:28 Respiratory Rate 16 05/02/24 13:28 Blood Pressure 146/91 H 05/02/24 13:28 Pulse Oximetry 97 05/02/24 13:28 Oxygen Delivery Room Air 05/02/24 13:28 Reviewed Procedures Laceration left 2nd digit: Date: 05/02/24 Size (cm): 1 Description: linear and clean Depth: simple, single layer Pre-repair: irrigated (cleansed with skintegrity) ====== Skin Level ====== Skin layer closed with: steri strips ====== Subcutaneous Layer ====== ====== Muscle Layer ====== ====== Tendon Layer ====== Dressing: After wound was cleansed and attempts to remove the super glue, the wound was closed with steri strips. Metal finger splint applied. Pt was minimally tolerant of the procedure due to pain in the wound. MDM - Wound/Laceration MDM Narrative Medical decision making narrative: Attempted to remove the previously applied super glue, then cleansed site and applied steri strips. Discussed physical exam findings. Advised supportive measures and signs/symptoms to go to the ER. Pt is appropriate for outpt treatment and f/u. Differential Diagnosis Differential diagnosis: Likely laceration, abrasion and avulsion of skin Discharge Plan Discharge Clinical Impression: Finger laceration Qualifiers: Encounter type: initial encounter Finger: index finger Damage to nail status: without damage Foreign body presence: without foreign body Laterality: left Qualified Code(s): S61.211A - Laceration without foreign body of left index finger without damage to nail, initial encounter Patient Disposition: Home, Self-Care Condition: Stable Instructions: Antibiotic Form, Finger Laceration (ED), Steristrips (ED) Additional Instructions: Steri-Strips will roll off on their own within 14 days Do not soak your wound. Avoid frequent or prolonged contact with water, including heavy perspiration. This may loosen the skin glue before the wound is healed. Keep the area clean and dry - cleanse with warm water and mild soap and allow to fully dry. Watch for worsening symptoms including pain, redness, swelling, streaking, pus/drainage, fever. Go to the ER with any of these symptoms or concerns. Follow up with primary care provider in 1 week as needed. Patient Language: Martiniquais Prescriptions: New cephalexin 500 mg capsule 500 mg PO Q12H 5 Days Qty: 10 0RF No Action tobramycin 0.3 % drops 1 drp LEFT EYE Q4H 7 Days Qty: 5 0RF gabapentin 300 mg capsule 600 mg PO TID Qty: 180 5RF meloxicam 7.5 mg tablet 15 mg PO DAILY Qty: 90 0RF hydrocodone-acetaminophen 7.5-325 mg tablet 1 tablet PO Q6H PRN (Reason: pain) Qty: 120 0RF Follow-up/Referrals: Yakov Cannon MD [Primary Care Provider] -
== END 2024-05-02 14:01 | disposition home or self-care (01) ==
PROVIDERS: Emergency Provider Nurse Practitioner Family; PCP Family Medicine
DX: S61.211A Laceration without foreign body of left index finger without damage to nail, initial encounter (principal); W26.0XXA Contact with knife, initial encounter; F17.210 Nicotine dependence, cigarettes, uncomplicated; E03.9 Hypothyroidism, unspecified; M93.1 Kienbock's disease of adults; M51.379 Other intervertebral disc degeneration, lumbosacral region without mention of lumbar back pain or lower extremity pain; G62.0 Drug-induced polyneuropathy; T45.1X5A Adverse effect of antineoplastic and immunosuppressive drugs, initial encounter; Z85.3 Personal history of malignant neoplasm of breast; Z90.10 Acquired absence of unspecified breast and nipple; Z96.653 Presence of artificial knee joint, bilateral
CPT/HCPCS: 99213; G0463